=== PATIENT | female | born 1950 | race Caucasian/White ===

== ENCOUNTER 2023-06-14 07:59 | Emergency (ER) | payer MEDICARE, BC ==
[~2023-06-14] VITALS: Ht 160 cm; Wt 120.5 kg
[2023-06-14 08:21] VITALS: BP 159/69; PULSE 59; TEMP 97.8; O2SAT 100
[2023-06-14] MEDS ORDERED: ondansetron 4mg rapidly disintigrating tab PO ONE (10:10)
[2023-06-14] MEDS ORDERED: HYDROcodone/acetaminophen 10/325mg tab PO ONE (10:10)
[2023-06-14] MEDS ORDERED: ibuprofen tablet 400 MG TABLET PO ONE (10:10)
--- NOTE | 2023-06-14 10:28 | NUR ---
PER HE WILL CANCEL EKG, IT IS NOT NEEDED. PT STATES SHE HAS LOWER BACK PAIN AND DOES NOT WANT EKG
[2023-06-14 10:58] VITALS: RESP 20
[2023-06-14] MEDS ORDERED: NAPR-56 PO (14:13)
[2023-06-14] MEDS ORDERED: CYCL-1 PO (14:13)
[2023-06-14] MEDS ORDERED: METO-292 PO (14:13)
== END 2023-06-14 14:00 | disposition home or self-care (01) ==
LOC: ER 07:59
DX: M51.36 Other intervertebral disc degeneration, lumbar region (principal); I10 Essential (primary) hypertension; E78.00 Pure hypercholesterolemia, unspecified; E03.9 Hypothyroidism, unspecified; Z88.1 Allergy status to other antibiotic agents
CPT/HCPCS: 72131; 99284